=== PATIENT | male | born 1950 | race Caucasian/White ===

== ENCOUNTER 2016-12-05 16:06 | Emergency (ER) | payer OTHER ==
[~2016-12-05] VITALS: Ht 175.3 cm; Wt 73.6 kg
[~2016-12-05 16:06] MED LIST: ATIVAN1 MG PO; LEXAPRO10 MG PO; LOMOTIL TABLET1 EACH PO; PRINIVIL20 MG PO; REMERON45 MG PO; REQUIP0.5 MG PO
[2016-12-05 16:39] LABS: HEMATOCRIT 40.2 % (38.0-50.0); MCHC 35.1 G/DL (30.0-36.0); MCV 94.1 FL (86-99); MEAN PLAT.VOLUME 10.2 uM^3 (9.0-12.4); PLATELET COUNT 171 K/uL (156-360); RBC DIS.WIDTH-CV 14.9 % (11.8-14.6); RBC DIS.WIDTH-SD 48.8 % (39-53); RED BLOOD COUNT 4.27 M/uL (4.00-5.50); WHITE BLOOD COUNT 9.1 K/uL (4.1-10.2)
[2016-12-05 16:48] LABS: CHLORIDE 111 mEq/L (99-109); SODIUM 147 mEq/L (136-147)
[2016-12-05 16:50] LABS: GLUCOSE 133 mg/dL (70-99)
[2016-12-05 16:52] LABS: ANION GAP 14 MEQ/L (2-14)
[2016-12-05 16:54] LABS: GFR ESTIMATE (CALCULATED) 59 mL/min/
[2016-12-05 16:55] LABS: UREA NITROGEN (BUN) 19 mg/dL (9-23)
[2016-12-05 17:06] LABS: ADD MIUA? YES; BILIRUBIN NEGATIVE; BLOOD LARGE; COLOR YELLOW ((YELLOW)); GLUCOSE (STRIP) NEGATIVE; KETONES 15; LEUKOCYTES TRACE; NITRITE NEGATIVE; PH, URINE 5.5 (5-8); PROTEIN (STRIP) 30; UROBILINOGEN 0.2 MG/DL (0.2-1.0)
[2016-12-05] MEDS ORDERED: MIRTAZAPINE45 MG PO (17:14)
[2016-12-05] MEDS ORDERED: AMLODIPINE-BEN1 EAC3 PO (17:16)
[2016-12-05] MEDS ORDERED: PRAVASTATIN SOD20 MG PO (17:17)
[2016-12-05 17:18] LABS: BACTERIA NONE SEEN; CASTS NONE SEEN /LPF; CRYSTALS NONE SEEN; EPITHELIAL CELLS RARE; MUCUS NONE SEEN; PATHOLOGICAL CAST NONE SEEN; RED BLOOD CELLS TNTC /HPF (0-5); SMALL ROUND CELL NONE SEEN; UCUL ADDED? NO; WHITE BLOOD CELLS 0-5 /HPF (0-5); YEAST-LIKE CELL NONE SEEN
[2016-12-05] MEDS ORDERED: NORCO 5/3251 TABLET PO (19:48)
[2016-12-05] MEDS ORDERED: ZOFRAN ODT8 MG PO (19:48)
[2016-12-05] MEDS ORDERED: FLOMAX0.4 MG PO (19:48)
[2016-12-05 20:07] VITALS: BP 129/66
== END 2016-12-05 20:10 | disposition home or self-care (01) ==
LOC: EME 16:06
DX: N23 Unspecified renal colic (principal); R31.9 Hematuria, unspecified; Z87.442 Personal history of urinary calculi; I10 Essential (primary) hypertension
CPT/HCPCS: 74000; 76770; 80048; 81003; 85027; 99281; 99285; J1885; J2405; J7040

== ENCOUNTER 2018-03-12 10:58 | Emergency (ER) | payer OTHER ==
[~2018-03-12] VITALS: Ht 175.3 cm; Wt 74.1 kg
[~2018-03-12 10:58] MED LIST changes: +AMLODIPINE-BEN1 EAC3 PO; +FLOMAX0.4 MG PO; +MIRTAZAPINE45 MG PO; +NORCO 5/3251 TABLET PO; +PRAVASTATIN SOD20 MG PO; +ZOFRAN ODT8 MG PO
[2018-03-12 11:24] LABS: HEMATOCRIT 44.8 % (38.0-50.0); HEMOGLOBIN 15.6 G/DL (12.5-16.6); MCH 31.4 PG (29.0-34.0); MCHC 34.8 G/DL (30.0-36.0); MCV 90.1 FL (86-99); PLATELET COUNT 156 K/uL (156-360); RBC DIS.WIDTH-CV 14.1 % (11.8-14.6); RBC DIS.WIDTH-SD 46.9 % (39-53); RED BLOOD COUNT 4.97 M/uL (4.00-5.50); WHITE BLOOD COUNT 8.9 K/uL (4.1-10.2)
[2018-03-12 11:35] LABS: CHLORIDE 106 mEq/L (99-109); POTASSIUM 4.5 mEq/L (3.7-5.4); SODIUM 144 mEq/L (136-147)
[2018-03-12 11:37] LABS: GLUCOSE 160 mg/dL (70-99)
[2018-03-12 11:40] LABS: CREATININE 1.5 mg/dL (0.6-1.3); GFR ESTIMATE (CALCULATED) 50 mL/min/ (58.99-99999)
[2018-03-12 11:41] LABS: UREA NITROGEN (BUN) 19 mg/dL (9-23)
[2018-03-12 12:02] LABS: APPEARANCE SL.HAZY ((CLEAR)); BILIRUBIN NEGATIVE; BLOOD LARGE; GLUCOSE (STRIP) NEGATIVE; KETONES NEGATIVE; LEUKOCYTES TRACE; NITRITE NEGATIVE; PROTEIN (STRIP) 100; SPECIFIC GRAVITY 1.017 (1.000-1.030); UROBILINOGEN 0.2 MG/DL (0.2-1.0)
[2018-03-12 12:03] LABS: COLOR LT.RED ((YELLOW))
[2018-03-12 12:25] LABS: RED BLOOD CELLS TNTC /HPF (0-5); WHITE BLOOD CELLS RARE /HPF (0-5)
[2018-03-12 12:26] LABS: BACTERIA NONE SEEN /HPF; EPITHELIAL CELLS NONE SEEN /HPF; MUCUS 1+ /LPF; UCUL ADDED? YES
[2018-03-12] MEDS ORDERED: PERCOCET 5/31 TABLET PO (13:50)
[2018-03-12] MEDS ORDERED: ZOFRAN ODT4 MG PO (13:50)
[2018-03-12] MEDS ORDERED: FLOMAX0.4 MG PO (13:50)
[2018-03-12 15:05] VITALS: BP 144/81
== END 2018-03-12 15:10 | disposition home or self-care (01) ==
LOC: EME 10:58
DX: N13.2 Hydronephrosis with renal and ureteral calculous obstruction (principal); Z87.442 Personal history of urinary calculi; F32.9 Major depressive disorder, single episode, unspecified; Z88.2 Allergy status to sulfonamides; Z88.0 Allergy status to penicillin
CPT/HCPCS: 74176; 80048; 81003; 85027; 87086; 99281; 99284; J2405; J3010; J7030

== ENCOUNTER 2018-07-10 12:11 | Emergency (ER) | payer OTHER ==
[~2018-07-10] VITALS: Ht 175.3 cm; Wt 74.4 kg
[~2018-07-10 12:11] MED LIST changes: +PERCOCET 5/31 TABLET PO; +ZOFRAN ODT4 MG PO
[2018-07-10 12:40] LABS: APPEARANCE TURBID ((CLEAR)); BILIRUBIN NEGATIVE; BLOOD LARGE; COLOR YELLOW ((YELLOW)); GLUCOSE (STRIP) NEGATIVE; KETONES NEGATIVE; LEUKOCYTES NEGATIVE; NITRITE NEGATIVE; PROTEIN (STRIP) 100; UROBILINOGEN 0.2 MG/DL (0.2-1.0)
[2018-07-10 12:53] LABS: HEMATOCRIT 39.1 % (38.0-50.0); HEMOGLOBIN 13.8 G/DL (12.5-16.6); MCHC 35.3 G/DL (30.0-36.0); MCV 93.5 FL (86-99); PLATELET COUNT 150 K/uL (156-360); RBC DIS.WIDTH-CV 13.5 % (11.8-14.6); RED BLOOD COUNT 4.18 M/uL (4.00-5.50); WHITE BLOOD COUNT 8.6 K/uL (4.1-10.2)
[2018-07-10 13:02] LABS: CHLORIDE 107 mEq/L (99-109); POTASSIUM 4.5 mEq/L (3.7-5.4); SODIUM 142 mEq/L (136-147)
[2018-07-10 13:04] LABS: GLUCOSE 157 mg/dL (70-99)
[2018-07-10 13:04] LABS: BACTERIA 1+ /HPF; EPITHELIAL CELLS NONE SEEN /HPF; MUCUS NONE SEEN /LPF; RED BLOOD CELLS 20-30 /HPF (0-5); UCUL ADDED? NO; WHITE BLOOD CELLS NONE SEEN /HPF (0-5)
[2018-07-10 13:05] LABS: URIC ACID CRYSTALS 2+ /HPF
[2018-07-10 13:08] LABS: GFR ESTIMATE (CALCULATED) > 59 mL/min/ (58.99-99999); UREA NITROGEN (BUN) 17 mg/dL (9-23)
[2018-07-10] MEDS ORDERED: CIPRO500 MG PO (15:22)
[2018-07-10 16:01] VITALS: BP 143/73
== END 2018-07-10 16:00 | disposition home or self-care (01) ==
LOC: EME 12:11
DX: N20.0 Calculus of kidney (principal); N21.0 Calculus in bladder; K57.30 Diverticulosis of large intestine without perforation or abscess without bleeding; K44.9 Diaphragmatic hernia without obstruction or gangrene; J98.11 Atelectasis; Z87.442 Personal history of urinary calculi; Z88.0 Allergy status to penicillin; Z88.2 Allergy status to sulfonamides
CPT/HCPCS: 74176; 80048; 81003; 85027; 87086; 99281; 99284; J1885; J2270; J2405; J7030